=== PATIENT | female | born 2000 | race Two or more races ===

== ENCOUNTER 2020-11-14 14:23 | Emergency (ER) | payer MEDICAID, OTHER ==
[~2020-11-14] VITALS: Ht 167.6 cm; Wt 96.6 kg
[2020-11-14 15:10] VITALS: BP 137/81
== END 2020-11-14 15:41 | disposition home or self-care (01) ==
LOC: ER 14:23
DX: S70.361A Insect bite (nonvenomous), right thigh, initial encounter (principal); W57.XXXA Bitten or stung by nonvenomous insect and other nonvenomous arthropods, initial encounter; Y93.89 Activity, other specified; Y92.89 Other specified places as the place of occurrence of the external cause; Y99.8 Other external cause status